=== PATIENT | male | born 1960 | race Caucasian/White ===

== ENCOUNTER 2017-11-28 10:21 | Inpatient (IN) | payer BC ==
[~2017-11-28] VITALS: Ht 180.3 cm; Wt 144.7 kg
--- NOTE | ~2017-11-28 | HC ---
[facility] [place] [address] CONSULTATION Name: IZABELAMARIANELABUD Room #: 364-P ADM IN ..#: [id number] Admission: 11/28/17 Attend Phys: Stephane Kaiser MD Discharge: Date of : 60 Report #: [id number] THIS REPORT FOR: //name// CC: Juan A Kaiser DATE OF SERVICE: 11/29/2017 CHIEF COMPLAINT: Cellulitis and ulceration, left leg. HISTORY OF PRESENT ILLNESS: This is a 57-year-old male patient who works as a integration software engineer, who developed pain, swelling, drainage and blistering of his left leg. He was seen in the Emergency Department and once by his primary care physician and was started on oral antibiotics. However, he has failed outpatient therapy and is actually now admitted for worsening of the cellulitis. He notes some pain associated with this. He states that the blistering developed over the last several days. PAST MEDICAL HISTORY: The patient's past medical history is positive for history of cellulitis of the lower extremity as well as a history of borderline hypertension, atrial flutter and obstructive sleep apnea. MEDICATIONS: Include diltiazem, Tambocor, losartan, hydrochlorothiazide, Xarelto, Lasix and Klor-Con. SOCIAL HISTORY: The patient admits to occasional beer. He denies smoking. FAMILY HISTORY: Noncontributory. REVIEW OF SYSTEMS: CONSTITUTIONAL: The patient denies fever, chills or weight loss. NEUROLOGIC: The patient denies focal weakness, numbness or tingling. EYES: The patient denies visual changes, redness or drainage. ENT: The patient denies earache, nasal drainage or sore throat. CARDIOVASCULAR: The patient denies chest pain, palpitations or diaphoresis. PULMONARY: The patient denies cough or shortness of breath. GASTROINTESTINAL: The patient denies nausea, vomiting, diarrhea or abdominal pain. ORTHOPEDIC: The patient does complain of pain, swelling and redness of his left lower extremity. Other systems in a 14-point review of systems are negative. PHYSICAL EXAMINATION: VITAL SIGNS: At this time include temperature of 36.8, pulse 72, respiratory rate 19 and blood pressure 166/89. GENERAL: This is a well-developed, well-nourished male patient, who appears to be in minimal distress. [address] [address] CONSULTATION Name: BUD RIVERA Chantal Room #: 364-P [facility] IN M.R.#: [id number] Admission: 11/28/17 Attend Phys: Stephane Kaiser MD Discharge: Date of : 60 Report #: [id number] HEENT: Head normocephalic. Nose and throat are clear. NECK: Supple. LUNGS: Clear. HEART: Regular rate and rhythm. ABDOMEN: Bowel sounds present. EXTREMITIES: Demonstrate easily palpable dorsalis pedis and posterior tibial pulses bilaterally. He has moderate redness, swelling, tenderness as well as ulceration involving his left lower leg, though ulceration occurs mainly on the posterior portion of the leg with lots of fibrinous material attached to the base. NEUROLOGIC: The patient is alert, oriented and appropriate. Cranial nerves 2-12 intact. LABORATORY DATA: Laboratory studies include white blood cells count of 11,000, hemoglobin 13.3 and hematocrit 40.1. Sodium 137, potassium 3.8, chloride 102, CO2 of 28, BUN is 18, creatinine 1.0 and glucose is elevated at 134. CLINICAL IMPRESSION: 1. Cellulitis with bulla formation involving the left lower extremity, failing outpatient therapy. 2. History of hypertension. 3. History of atrial flutter. 4. Mild hyperglycemia. RECOMMENDATIONS: At this point in time, we will recommend pulse lavage to the affected area. We will recommend Silvadene and Xeroform gauze to the open areas on the posterior portion of the calf. We will recommend elevation at this time. Continue with intravenous antibiotic therapy. Once the cellulitis is under better control, we will consider more aggressive compression of the leg. The patient is agreeable with the plan of care. I appreciate being asked to see him in consultation. <ELECTRONICALLY SIGNED> By: Dong Mckinley MD 11/30/17 [id number] [id number] Dong Mckinley MD /nt
--- NOTE | ~2017-11-28 | HC ---
[facility] [place] [address] CONSULTATION Name: BUD RIVERA Chantal Room #: 364-P [facility] IN .R.#: [id number] Admission: 11/28/17 Attend Phys: Stephane Kaiser MD Discharge: Date of : 60 Report #: [id number] THIS REPORT FOR: //name// CC: Juan A Kaiser DATE OF SERVICE: 11/28/2017 INFECTIOUS DISEASE CONSULTATION REASON FOR CONSULTATION: Left lower extremity cellulitis, not responding to outpatient therapy. HISTORY OF PRESENT ILLNESS: The patient is a 57-year-old with previous history of cellulitis of left lower extremity. Approximately 2 weeks ago, he developed onset of pain, swelling, chills, sweats, erythema involving the left lower leg below the knee. No definite injury at the onset. He has had 3 or 4 episodes of cellulitis previously. Nondiabetic. Atrial fibrillation, on anticoagulation. Treated with doxycycline as an outpatient and failed to improve; therefore hospitalized for further treatment. ALLERGIES: None. MEDICATIONS: Cardizem, Tambocor, losartan, hydrochlorothiazide, Xarelto, Lasix, potassium, recently on doxycycline having finished this 2 days ago. PAST MEDICAL HISTORY: Obstructive sleep apnea, atrial flutter, hypertension. FAMILY HISTORY: Noncontributory. SOCIAL HISTORY: Nonsmoker, no significant alcohol intake. REVIEW OF SYSTEMS: Ten-point review of systems otherwise unremarkable other than what has been described above. PHYSICAL EXAMINATION: VITAL SIGNS: Afebrile and hemodynamically stable. GENERAL: The patient was obese, alert, cooperative, in no acute distress. HEENT: He was hard of hearing. Eyes: No conjunctival injection. Mouth: Unremarkable with no mucositis or lesion. NECK: Supple, no thyromegaly or mass appreciated. No JVD. BACK: Nontender. LUNGS: Clear. HEART: Regular, without murmur. ABDOMEN: Soft, obese, nontender. No hepatosplenomegaly or mass. [address] [address] CONSULTATION Name: BUD RIVERA Chantal Room #: 364-P [facility] IN ..#: [id number] Admission: 11/28/17 Attend Phys: Stephane Kaiser MD Discharge: Date of : 60 Report #: [id number] EXTREMITIES: Left upper extremity had a peripheral IV in place with no erythema or drainage. Left lower extremity, 2+ edema with cellulitis involving the lower leg from the foot to just above his lateral knee. There was skin breakdown with eschar posteriorly. Serous drainage. Moderate tenderness throughout the left lower leg. No lymphangitis in his groin evident. Sensation intact in the left foot. Pulses were normal in the left foot. Right lower extremity unremarkable. NEUROLOGIC: Cranial nerves intact. He was hard of hearing bilaterally. Strength in lower extremities and upper extremities was normal. Sensation was normal. LABORATORY STUDIES: Reviewed. IMPRESSION AND PLAN: 1. Left lower extremity cellulitis, failed outpatient therapy. I am still suspecting Strep or Staph infection. 2. Atrial flutter/fibrillation, on anticoagulation. 3. Hypertension. 4. Obesity. RECOMMENDATION: Continue with cefazolin 1 g IV q. 8 hours. Leg elevation. We will need continued dressing changes to the right lower leg wounds. Following treatment of this process, the patient will need compression stockings to control his edema. Would also screen for diabetes with hemoglobin A1c. <ELECTRONICALLY SIGNED> By: Romero Cary MD 11/30/17 [id number] Romero Cary MD /nt
[2017-11-28 10:22] VITALS: BP 169/106
[2017-11-28] MEDS ORDERED: CARDIZEM CD240 MG PO (11:09)
[2017-11-28] MEDS ORDERED: COZAAR 25 MG TA25 M1 PO (11:09)
[2017-11-28] MEDS ORDERED: XARELTO20 MG PO (11:09)
[2017-11-28] MEDS ORDERED: FLECAINIDE ACET50 M1 PO (11:10)
[2017-11-28] MEDS ORDERED: NORVASC5 MG PO (11:10)
[2017-11-28] MEDS ORDERED: LASIX 40 MG TAB40 M2 PO (11:10)
[2017-11-28] MEDS ORDERED: KLOR-CON 10 ER10 MEQ PO (11:10)
[2017-11-28 11:16] LABS: ABSOLUTE NEUTROPHILS 8.1 thou/uL (1.4-8.2); BASOPHILS 0.5 % (0.0-2.0); EOSINOPHILS 1.7 % (0.0-3.0); HEMATOCRIT 40.1 % (42.0-52.0); HEMOGLOBIN 13.3 gm/dL (14.0-18.0); LYMPHOCYTES 15.2 % (24.0-44.0); MCH 26.6 pg (26.0-34.0); MCHC 33.3 g/dL (28.0-37.0); MCV 79.8 fL (80.0-100.0); MONOCYTES 9.1 % (1.0-8.0); PLATELET COUNT 473 thou/uL (150-400); POLYS 73.5 % (36.0-66.0); RBC 5.03 mil/uL (4.50-6.00); RDW 15.3 % (10.5-14.5)
[2017-11-28 11:27] LABS: CREATININE 1.2 mg/dL (0.7-1.3); POTASSIUM 3.7 mmol/L (3.5-5.1)
[2017-11-28 11:30] LABS: ALBUMIN 2.7 g/dL (3.4-5.0); TOTAL BILIRUBIN 0.4 mg/dL (<0.1-1.0); TOTAL PROTEIN 8.7 g/dL (6.4-8.2)
[2017-11-28 13:35] VITALS: BP 168/92
[2017-11-28 14:21] LABS: TSH 1.526 uIU/mL (0.358-3.740)
[2017-11-28 14:55] VITALS: BP 176/101
[2017-11-28 15:50] VITALS: BP 166/95
[2017-11-28] MEDS ORDERED: losartan/hctz PO (16:55)
[2017-11-28 19:49] VITALS: BP 170/100
[2017-11-29 04:48] VITALS: BP 165/97
[2017-11-29 05:58] LABS: HEMATOCRIT 37.2 % (42.0-52.0); HEMOGLOBIN 12.3 gm/dL (14.0-18.0); MCH 26.6 pg (26.0-34.0); MCHC 33.1 g/dL (28.0-37.0); MCV 80.5 fL (80.0-100.0); RBC 4.62 mil/uL (4.50-6.00); RDW 14.9 % (10.5-14.5); WBC 9.8 thou/uL (4.0-11.0)
[2017-11-29 06:08] LABS: GLYCOHEMOGLOBIN (HGB A1C) 6.6 % (4.8-5.6)
[2017-11-29 06:12] LABS: CALCIUM 8.5 mg/dL (8.5-10.1); MAGNESIUM 2.1 mg/dL (1.8-2.4); POTASSIUM 3.8 mmol/L (3.5-5.1)
[2017-11-29 08:25] VITALS: BP 187/105
[2017-11-29 17:06] VITALS: BP 166/89
[2017-11-29 19:46] VITALS: BP 147/93
[2017-11-30 04:52] VITALS: BP 152/92
[2017-11-30 05:51] LABS: HEMATOCRIT 36.8 % (42.0-52.0); HEMOGLOBIN 12.1 gm/dL (14.0-18.0); MCH 26.3 pg (26.0-34.0); MCHC 32.8 g/dL (28.0-37.0); MCV 80.3 fL (80.0-100.0); RBC 4.58 mil/uL (4.50-6.00); RDW 14.7 % (10.5-14.5); WBC 8.2 thou/uL (4.0-11.0)
[2017-11-30 06:00] LABS: CALCIUM 8.4 mg/dL (8.5-10.1); MAGNESIUM 2.1 mg/dL (1.8-2.4); POTASSIUM 3.8 mmol/L (3.5-5.1)
[2017-11-30 09:10] VITALS: BP 162/101
[2017-11-30] MEDS ORDERED: ROCEPHIN 11 GM/1001 IV (14:32)
[2017-11-30 15:59] VITALS: BP 162/101
[2017-11-30 16:43] VITALS: BP 162/101
[2017-11-30 17:34] VITALS: BP 162/101
== END 2017-11-30 18:18 | disposition home health service (06) | DRG 603 ==
LOC: ER 10:21 → EROBS 12:44 → 3W 12:44
PROVIDERS: Internal Medicine; Physician Assistant; Specialist
PROC: 05HY33Z Insertion of Infusion Device into Upper Vein, Percutaneous Approach (ICD-10-PCS; principal; 2017-11-30)
DX: L03.116 Cellulitis of left lower limb (principal); I48.92 Unspecified atrial flutter; Z68.41 Body mass index [BMI] 40.0-44.9, adult; E66.9 Obesity, unspecified; G47.33 Obstructive sleep apnea (adult) (pediatric); I10 Essential (primary) hypertension; I48.91 Unspecified atrial fibrillation; Z79.01 Long term (current) use of anticoagulants; Z79.899 Other long term (current) drug therapy; Z28.21 Immunization not carried out because of patient refusal
CPT/HCPCS: 10080; 27000

== ENCOUNTER 2017-12-06 14:04 | Emergency (ER) | payer BC ==
[~2017-12-06] VITALS: Ht 180.3 cm; Wt 136.1 kg
[~2017-12-06 14:04] MED LIST: CARDIZEM CD240 MG PO; COZAAR 25 MG TA25 M1 PO; FLECAINIDE ACET50 M1 PO; KLOR-CON 10 ER10 MEQ PO; LASIX 40 MG TAB40 M2 PO; NORVASC5 MG PO; ROCEPHIN 11 GM/1001 IV; XARELTO20 MG PO; losartan/hctz PO
[2017-12-06 15:43] VITALS: BP 163/99
== END 2017-12-06 15:35 | disposition home or self-care (01) ==
LOC: ER 14:04
DX: T82.598A Other mechanical complication of other cardiac and vascular devices and implants, initial encounter (principal)

== ENCOUNTER 2018-10-27 20:27 | Emergency (ER) | payer BC ==
[~2018-10-27] VITALS: Ht 180.3 cm; Wt 142.9 kg
[2018-10-27] MEDS ORDERED: DOXYCYCLINE 10100 MG PO (21:43)
[2018-10-27 21:55] VITALS: BP 164/86
== END 2018-10-27 21:54 | disposition home or self-care (01) ==
LOC: ER 20:27
DX: L03.116 Cellulitis of left lower limb (principal); I48.92 Unspecified atrial flutter; G47.30 Sleep apnea, unspecified

== ENCOUNTER 2020-01-17 18:35 | Emergency (ER) | payer BC ==
[~2020-01-17] VITALS: Ht 180.3 cm; Wt 138.3 kg
[~2020-01-17 18:35] MED LIST changes: +DOXYCYCLINE 10100 MG PO
[2020-01-17] MEDS ORDERED: COZAAR 25 MG TA25 M1 PO (19:53)
[2020-01-17] MEDS ORDERED: HYDROCHLOROTHIA25 M2 PO (19:54)
[2020-01-17] MEDS ORDERED: HYDRALAZINE 2525 M1 PO (19:54)
[2020-01-17 19:59] LABS: ABSOLUTE NEUTROPHILS 6.2 thou/uL (1.4-8.2); BASOPHILS 0.6 % (0.0-2.0); EOSINOPHILS 2.3 % (0.0-3.0); HEMATOCRIT 41.9 % (42.0-52.0); HEMOGLOBIN 13.6 gm/dL (14.0-18.0); LYMPHOCYTES 20.8 % (24.0-44.0); MCH 26.5 pg (26.0-34.0); MCHC 32.5 g/dL (28.0-37.0); MCV 81.5 fL (80.0-100.0); PLATELET COUNT 316 thou/uL (150-400); POLYS 67.3 % (36.0-66.0); RBC 5.14 mil/uL (4.50-6.00); WBC 9.2 thou/uL (4.0-11.0)
[2020-01-17 20:07] LABS: CALCIUM 9.4 mg/dL (8.5-10.1); POTASSIUM 3.4 mmol/L (3.5-5.1)
[2020-01-17 20:13] LABS: ALBUMIN 3.5 g/dL (3.4-5.0); TOTAL BILIRUBIN 0.5 mg/dL (0.2-1.0); TOTAL PROTEIN 7.9 g/dL (6.4-8.2)
[2020-01-17 21:28] VITALS: BP 141/84
--- NOTE | 2020-01-18 07:32 | EKG ---
[facility] [address] [place] [address] ELECTROCARDIOGRAM REPORT Name: BUD RIVERA [facility] XiomyRDavid#: [id number] Admission: 01/17/20 Attend Phys: Discharge: 01/17/20 Date of : 60 Report #: [id number] THIS REPORT FOR: cc: Juan A Lorenzana David J. DO Santiago, Patrick MD FACC ~ <ELECTRONICALLY SIGNED> By: Jerry Paul MD, FACC 01/18/20 0732 [id number] Jerry Paul MD, FACC /EPI
== END 2020-01-17 21:29 | disposition home or self-care (01) ==
LOC: ER 18:35
PROVIDERS: Physician Assistant
DX: I10 Essential (primary) hypertension (principal); Z79.2 Long term (current) use of antibiotics; Z79.899 Other long term (current) drug therapy